=== PATIENT | female | born 1950 | race Caucasian/White ===

== ENCOUNTER 2016-07-15 15:49 | Outpatient (CLI) | payer BC, MEDICARE | END 2016-07-15 15:50 | disposition home or self-care (01) | DX: Z12.31 Encounter for screening mammogram for malignant neoplasm of breast (principal) ==

== ENCOUNTER 2017-07-29 18:46 | Outpatient (CLI) | payer MEDICARE ==
--- NOTE | 2017-07-30 13:14 | Ultrasound Report ---
RIGHT UPPER QUADRANT ULTRASOUND: 07/29/2017 CLINICAL INDICATION: Right upper quadrant pain. TECHNIQUE: Real-time scanning was performed with indirect sales representative static images obtained. FINDINGS: The liver measures 14.2 cm. Hepatic echogenicity is normal. No intrahepatic biliary dilatation or focal parenchymal lesion is present. The common bile duct measures 3 mm. The gallbladder is normal. The right kidney measures 9.8 cm, and demonstrates no hydronephrosis. No free fluid is present. IMPRESSION: NORMAL RIGHT UPPER QUADRANT ULTRASOUND. TD: 07/30/2017 13:13
== END 2017-07-29 18:47 | disposition home or self-care (01) ==
LOC: DI 18:46
PROVIDERS: ATTEND Nurse Practitioner Family
DX: R10.11 Right upper quadrant pain (principal)
CPT/HCPCS: 76705

== ENCOUNTER 2018-06-28 09:30 | Day surgery (SDC) | payer MEDICARE ==
[2018-06-28] MEDS ORDERED: LACTATED RINGERS 1,000 ML IV ONE (10:04)
[2018-06-28 15:56] VITALS: BP 111/76
[2018-06-28] MEDS ORDERED: BARIUM SULFATE 1,900 ML BOTTLE RC ONE (16:36)
--- NOTE | 2018-06-28 19:10 | XRAY Report ---
Reason: INCOMPLETE COLONOSCOPY Procedure Date: 06/28/2018 Accession Number: [id number] / [id number] Procedure: FL - Barium Enema w/Air CPT Code: FULL RESULT: EXAM: Barium Enema w/Air DATE: 06/28/2018 3:53 PM CLINICAL HISTORY: INCOMPLETE COLONOSCOPY COMPARISON: None TECHNIQUE: Routine double contrast barium enema. Fluoroscopic exposure time: 6 minutes. Number of fluoroscopic images: 30. FINDINGS: Morphology: Normal distention and anatomy. Colon adequately imaged from the rectum to the cecum. Sigmoid colon is redundant. Mucosa: No masses, annular constricting lesions, or strictures. No filling defects evident. An occasional tiny diverticulum is present. Terminal Ileum: No reflux into the terminal ileum. Other: The appendix is identified. IMPRESSION: Normal double contrast barium enema. RADIA
== END 2018-06-28 09:31 | disposition home or self-care (01) ==
LOC: SDS 09:30
PROVIDERS: ATTEND Surgery
PROC: 0DJD8ZZ Inspection of Lower Intestinal Tract, Via Natural or Artificial Opening Endoscopic (ICD-10-PCS; principal; 2018-06-28 10:30)
DX: Z12.11 Encounter for screening for malignant neoplasm of colon (principal); Z53.8 Procedure and treatment not carried out for other reasons; Z87.891 Personal history of nicotine dependence; Z72.89 Other problems related to lifestyle
CPT/HCPCS: 74280; A9270; G0121; J7120

== ENCOUNTER 2019-04-13 11:18 | Outpatient (CLI) | payer MEDICARE ==
--- NOTE | 2019-04-14 13:38 | Mammography Report ---
Reason: SCREENING MAMMO Procedure Date: 04/13/2019 Accession Number: [id number] / [id number] Procedure: MGS - Screening Mammo Dig Bilat CPT Code: Final Report FULL RESULT: EXAM: Screening Mammo Dig Bilat DATE: 04/13/2019 11:39 AM CLINICAL HISTORY: Routine screening TECHNIQUE: (B) - Bilateral CC and MLO views were obtained. COMPARISON: 07/15/2016, 01/18/2014, 01/03/2013, 10/15/2011, 02/06 10 PARENCHYMAL PATTERN: (VD) - The breasts demonstrate extremely dense parenchyma bilaterally, limiting the sensitivity of mammography. FINDINGS: No significant interval change. There are no suspicious masses, calcifications, or areas of distortion. IMPRESSION: Negative examination. BI-RADS category 1. RECOMMENDATION: (ANNUAL) - Recommend routine annual screening mammography. BI-RADS CATEGORY: (1) - Negative. STANDARD QUALIFYING STATEMENTS: 1. This examination was not reviewed with the aid of Computer-Aided Detection (CAD). 2. A negative or benign imaging report should not preclude biopsy if clinically suspicious findings are present. 3. Dense breasts may obscure an underlying neoplasm. 4. This examination was reviewed without the aid of 3D breast imaging (tomosynthesis).
== END 2019-04-13 11:19 | disposition home or self-care (01) ==
LOC: DI.S 11:18
DX: Z12.31 Encounter for screening mammogram for malignant neoplasm of breast (principal)
CPT/HCPCS: 77067

== ENCOUNTER 2020-03-29 09:19 | Outpatient (CLI) | payer MEDICARE ==
--- NOTE | 2020-03-29 12:19 | Ultrasound Report ---
PROCEDURE: Abdomen Complete INDICATIONS: UMBILICAL MASS, SPLENOMEGALY TECHNIQUE: Real-time scanning was performed of the abdominal and retroperitoneal organs, with image documentatio n. COMPARISON: 06/28/2013 FINDINGS: Liver: Liver is normal in size and homogeneous in echotexture. Gallbladder: The gallbladder is normal without stones, sludge, wall thickening, or pericholecystic fl uid. Biliary ducts: Intrahepatic bile ducts are non-dilated. Extrahepatic bile duct caliber measures 3 m m. Normal is 6-7 mm or less in diameter, or 10 mm or less post-cholecystectomy. Pancreas: Visualized portions of the pancreas are sonographically normal. Spleen: Spleen is normal in size measuring 8.1 cm, and homogeneous in echotexture. Kidneys: Kidneys are mildly diminutive in size and normal in echotexture. Right kidney measures 9.5 cm long; left kidney measures 8.9 cm long. No hydronephrosis or nephrolithiasis. No solid masses. Aorta: Visualized aorta is normal in caliber at less than 3 cm. Iliacs: Proximal common iliac arteries are normal in caliber at less than 2.5 cm. IVC: Intrahepatic inferior vena cava is patent. Miscellaneous: No free abdominal fluid. There is a horizontally oriented, flat avascular umbilical mass measuring 4.0 x 1.0 x 2.3 cm with a narrow neck through the anterior abdominal wall. The echotex ture is isoechoic to adjacent subcutaneous fat. Slight increase in size with Valsalva maneuver. IMPRESSION: 1. Normal size spleen, stable since the remote prior exam. 2. Fat-containing, narrow necked umbilical hernia. Reviewed by: Karis Thompson MD on 03/29/2020 12:17 PM PDT Approved by: Karis Thompson MD on 03/29/2020 12:17 PM PDT Station ID: [id number]
== END 2020-03-29 09:20 | disposition home or self-care (01) ==
LOC: DI 09:19
PROVIDERS: ATTEND Family Medicine
DX: K42.9 Umbilical hernia without obstruction or gangrene (principal); R16.1 Splenomegaly, not elsewhere classified
CPT/HCPCS: 76700

== ENCOUNTER 2020-04-24 14:10 | Outpatient (CLI) | payer MEDICARE ==
--- NOTE | 2020-04-25 13:22 | Mammography Report ---
BILATERAL DIGITAL SCREENING MAMMOGRAM 3D/2D: 04/24/2020 CLINICAL: Routine screening. Comparison is made to exams dated: 04/13/2019 mammogram, 07/15/2016 mammogram, 01/18/2014 mammogram, 12/13 mammogram, 11/04/2011 mammogram, and 02/06/2010 mammogram - [facility]. The t issue of both breasts is heterogeneously dense. This may lower the sensitivity of mammography. No significant masses, calcifications, or other findings are seen in either breast. There has been no significant interval change. IMPRESSION: NEGATIVE There is no mammographic evidence of malignancy. A 1 year screening mammogram is recommended. This exam was interpreted at Station ID: [id number]. NOTE: For mammograms, a report in lay terms will be sent to the patient. Approximately 15% of breast malignancies will not be visualized mammographically. In the management of a palpable breast mass, a negative mammogram must not discourage biopsy of a clinically suspicious lesion. Electronically Signed By: Asia carrington/stewart:04/24/2020 15:08:35 ACR BI-RADS Category 1: Negative 3341F PARENCHYMAL PATTERN: (D) - The breast(s) demonstrate(s) heterogeneously dense fibroglandular bita mock. BI-RADS CATEGORY: (1) - 1 RECOMMENDATION: (ANNUAL) - Recommend routine annual screening mammography. [id number] 1 year screening LATERALITY: (B)
== END 2020-04-24 14:11 | disposition home or self-care (01) ==
LOC: DI 14:10
DX: Z12.31 Encounter for screening mammogram for malignant neoplasm of breast (principal)
CPT/HCPCS: 77063; 77067

== ENCOUNTER 2020-05-13 17:26 | Outpatient (CLI) | payer MEDICARE | END 2020-05-13 17:27 | disposition home or self-care (01) | LOC: COV 17:26 | PROVIDERS: ATTEND Family Medicine | DX: Z20.828 Contact with and (suspected) exposure to other viral communicable diseases (principal) ==

== ENCOUNTER 2021-06-05 08:00 | Outpatient (CLI) | payer MEDICARE ==
[2021-06-05 15:59] LABS: BILIRUBIN,URINE NEGATIVE (NEGATIVE); GLUCOSE, URINE (UA) NEGATIVE (NEGATIVE); KETONES,URINE (UA) NEGATIVE (NEGATIVE); LEUKOCYTE ESTERASE, URINE SMALL (NEGATIVE); NITRITE,URINE NEGATIVE (NEGATIVE); OCCULT BLOOD,URINE MODERATE (NEGATIVE); PROTEIN,URINE NEGATIVE (NEGATIVE); UROBILINOGEN,URINE 0.2 (NORMAL) E.U./dL (NORMAL)
[2021-06-05 16:03] LABS: CLARITY,URINE HAZY (CLEAR)
[2021-06-05 16:23] LABS: BACTERIA,URINE Few /HPF (None Seen); SQUAMOUS EPITHELIAL CELL,UR RARE Squamous (<= Few); WBC,URINE >25 /HPF (0-5)
[2021-06-05 21:57] LABS: BACTERIAL VAGINOSIS DNA NEGATIVE (NEGATIVE); CANDIDA GLABRATA DNA NEGATIVE (NEGATIVE); CANDIDA GROUP DNA NEGATIVE (NEGATIVE); CANDIDA KRUSEI DNA NEGATIVE (NEGATIVE); TRICHOMONAS VAGINALIS DNA NEGATIVE (NEGATIVE)
== END 2021-06-05 23:59 | disposition home or self-care (01) ==
LOC: LAB 08:00
PROVIDERS: ATTEND Emergency Medicine
DX: N39.0 Urinary tract infection, site not specified (principal)
CPT/HCPCS: 81001; 87077; 87086; 87181; 87661; 87801

== ENCOUNTER 2021-06-10 11:00 | Outpatient (CLI) | payer MEDICARE ==
--- NOTE | 2021-06-11 08:32 | Mammography Report ---
BILATERAL DIGITAL SCREENING MAMMOGRAM 3D/2D WITH EXAGGERATED CC: 06/10/2021 CLINICAL: Routine screening. Family history of breast cancer. Comparison is made to exams dated: 04/24/2020 mammogram, 04/13/2019 mammogram, and 07/15/2016 mammogra m - [facility]. The tissue of both breasts is heterogeneously dense. This may lowe r the sensitivity of mammography. No significant masses, calcifications, or other findings are seen in either breast. There has been no significant interval change. IMPRESSION: NEGATIVE There is no mammographic evidence of malignancy. A 1 year screening mammogram is recommended. This exam was interpreted at Station ID: [id number]. NOTE: For mammograms, a report in lay terms will be sent to the patient. Approximately 15% of breast malignancies will not be visualized mammographically. In the management of a palpable breast mass, a negative mammogram must not discourage biopsy of a clinically suspicious lesion. Electronically Signed By: Mick huber/stewart:06/10/2021 12:44:04 ACR BI-RADS Category 1: Negative 3341F PARENCHYMAL PATTERN: (D) - The breast(s) demonstrate(s) heterogeneously dense fibroglandular bita mock. BI-RADS CATEGORY: (1) - 1 RECOMMENDATION: (ANNUAL) - Recommend routine annual screening mammography. [id number] 1 year screening LATERALITY: (B)
== END 2021-06-10 11:01 | disposition home or self-care (01) ==
LOC: DI.S 11:00
DX: Z12.31 Encounter for screening mammogram for malignant neoplasm of breast (principal); Z80.3 Family history of malignant neoplasm of breast

== ENCOUNTER 2022-07-20 11:30 | Outpatient (CLI) | payer MEDICARE ==
--- NOTE | 2022-07-21 09:44 | Mammography Report ---
BILATERAL DIGITAL SCREENING MAMMOGRAM 3D/2D WITH EXAGGERATED CC: 07/20/2022 CLINICAL: Routine screening. Family history of breast cancer. Comparison is made to exams dated: 06/10/2021 mammogram, 04/24/2020 mammogram, 04/13/2019 mammogram, and 07/15/2016 mammogram - [facility]. Both breasts are extremely dense, which lowers the sensitivity of mammography (category d />75% gland ular tissue). No significant masses, calcifications, or other findings are seen in either breast. There has been no significant interval change. IMPRESSION: NEGATIVE There is no mammographic evidence of malignancy. A 1 year screening mammogram is recommended. Based on the Tyrer Cuzick model (a risk assessment model) the patients lifetime risk is 11.7% and he r 10 year risk is 8.1%. According to the ACR, ACS, and NCCN guidelines, an annual breast MRI exam vanna ng with mammogram is recommended if the patients lifetime risk is 20% or greater. This exam was interpreted at Station ID: [id number]. NOTE: For mammograms, a report in lay terms will be sent to the patient. Approximately 15% of breast malignancies will not be visualized mammographically. In the management of a palpable breast mass, a negative mammogram must not discourage biopsy of a clinically suspicious lesion. Electronically Signed By: Tanmay Stokes M.D., jr/stewart:07/20/2022 12:23:46 ACR BI-RADS Category 1: Negative 3341F PARENCHYMAL PATTERN: (VD) - The breast(s) demonstrate(s) extremely dense parenchyma, limiting the sen sitivity of mammography. BI-RADS CATEGORY: (1) - 1 RECOMMENDATION: (ANNUAL) - Recommend routine annual screening mammography. [id number] 1 year screening LATERALITY: (B)
== END 2022-07-20 23:59 | disposition home or self-care (01) ==
LOC: DI 11:30
PROVIDERS: ATTEND Registered Nurse
DX: Z12.31 Encounter for screening mammogram for malignant neoplasm of breast (principal); Z80.3 Family history of malignant neoplasm of breast

== ENCOUNTER 2022-10-06 12:42 | Outpatient (CLI) | payer MEDICARE ==
--- NOTE | 2022-10-06 18:42 | MRI Report ---
PROCEDURE: KNEE WO - RT INDICATIONS: RIGHT KNEE PAIN TECHNIQUE: Noncontrast sagittal PD fast spin echo and T2 fast spin echo with fat saturation, sagittal 3-D gradie nt sequence with fat saturation; coronal T1 spin echo and PD fast spin echo with fat saturation, and axial PD fast spin echo with fat saturation through the knee. COMPARISON: Good FINDINGS: Image quality: Excellent Menisci Medial: Horizontal tear of the medial meniscus, involving the free edge of the body, and extending in to the posterior horn. Lateral: Possible tiny horizontal tear at the peripheral body. Cruciate ligaments: Intact Medial structures MCL: Intact Pes anserine tendons: Mild bursitis Semimembranosus: Intact Lateral structures LCL: Intact Biceps femoris: Intact IT band: Intact Popliteus tendon: Intact Anterior structures Extensor mechanism: Intact. There is also minimal prepatellar edema. Fat pads: No pathologic edema Medial retinaculum: Intact. Trochlea: Unremarkable morphology. Bone and joint Bones: No fracture, dislocation. Posterior medial femoral condyle intraosseous ganglions are seen at the capsular insertion (12/06), with mild surrounding soft tissue swelling.. Cartilage: Mild to moderate heterogeneity in multiple compartments. A focus of full-thickness fissuri ng with edema is seen in the anterior central femoral condyle. Joint space: Physiologic fluid. No measureable loose body. Colindres's cyst: Tiny Colindres's cyst Soft tissues: No significant vascular or other soft tissue pathology. Small periarticular ganglions. IMPRESSION: Intact cruciate ligaments. Horizontal tear of the medial meniscus involving the free edge. Possible t iny, probably degenerative, horizontal tear of the lateral meniscal body. Cartilage heterogeneity with a focus of full-thickness fissuring and underlying marrow edema in the c entral anterior medial femoral condyle Mild edema surrounds the posteromedial corner structures, near the joint capsule insertion at the pos terior medial femoral condyle, and adjacent pes anserine bursitis. Small Colindres's cyst. Reviewed by: Robert Stratton MD on 10/06/2022 6:41 PM PDT Approved by: Robert Stratton MD on 10/06/2022 6:41 PM PDT Station ID: [id number]
== END 2022-10-06 12:43 | disposition home or self-care (01) ==
LOC: DI 12:42
PROVIDERS: ATTEND Internal Medicine
DX: S83.241A Other tear of medial meniscus, current injury, right knee, initial encounter (principal); R93.6 Abnormal findings on diagnostic imaging of limbs; M71.21 Synovial cyst of popliteal space [Baker], right knee

== ENCOUNTER 2023-09-17 08:00 | Outpatient (CLI) | payer MEDICARE ==
[2023-09-17 17:24] LABS: BILIRUBIN,URINE NEGATIVE (NEGATIVE); GLUCOSE, URINE (UA) NEGATIVE (NEGATIVE); KETONES,URINE (UA) NEGATIVE (NEGATIVE); LEUKOCYTE ESTERASE, URINE NEGATIVE (NEGATIVE); NITRITE,URINE NEGATIVE (NEGATIVE); OCCULT BLOOD,URINE MODERATE (NEGATIVE); PROTEIN,URINE NEGATIVE (NEGATIVE); UROBILINOGEN,URINE 0.2 (NORMAL) E.U./dL (NORMAL)
[2023-09-17 17:36] LABS: BACTERIA,URINE Rare /HPF (None Seen); CLARITY,URINE CLEAR (CLEAR); SQUAMOUS EPITHELIAL CELL,UR NONE SEEN (<= Few); WBC,URINE 0-3 /HPF (0-5)
== END 2023-09-17 23:59 | disposition home or self-care (01) ==
LOC: LAB.WC 08:00
PROVIDERS: ATTEND Obstetrics & Gynecology
DX: R32 Unspecified urinary incontinence (principal); R31.9 Hematuria, unspecified
CPT/HCPCS: 81001; 81002; 87086

== ENCOUNTER 2023-09-21 13:11 | Outpatient (CLI) | payer MEDICARE ==
--- NOTE | 2023-09-22 09:08 | Mammography Report ---
BILATERAL DIGITAL SCREENING MAMMOGRAM 3D/2D WITH EXAGGERATED CC: 09/21/2023 CLINICAL: Routine screening. Family history of breast cancer. Comparison is made to exams dated: 07/20/2022 mammogram, 06/10/2021 mammogram, and 04/24/2020 mammogra m - [facility]. Both breasts are extremely dense, which lowers the sensitivity of mammography (category d />75% gland ular tissue). No significant masses, calcifications, or other findings are seen in either breast. There has been no significant interval change. IMPRESSION: NEGATIVE There is no mammographic evidence of malignancy. A 1 year screening mammogram is recommended. Based on the Tyrer Cuzick model (a risk assessment model) the patient's lifetime risk is 11.1% and he r 10 year risk is 8.3%. According to the ACR, ACS, and NCCN guidelines, an annual breast MRI exam vanna ng with mammogram is recommended if the patient's lifetime risk is 20% or greater. This exam was interpreted at Station ID: [id number]. NOTE: For mammograms, a report in lay terms will be sent to the patient. Approximately 15% of breast malignancies will not be visualized mammographically. In the management of a palpable breast mass, a negative mammogram must not discourage biopsy of a clinically suspicious lesion. Electronically Signed By: Karis miller/stewart:09/21/2023 17:58:40 ACR BI-RADS Category 1: Negative 3341F PARENCHYMAL PATTERN: (VD) - The breast(s) demonstrate(s) extremely dense parenchyma, limiting the sen sitivity of mammography. BI-RADS CATEGORY: (1) - 1 RECOMMENDATION: (ANNUAL) - Recommend routine annual screening mammography. [id number] 1 year screening LATERALITY: (B)
== END 2023-09-21 13:12 | disposition home or self-care (01) ==
LOC: DI.S 13:11
PROVIDERS: ATTEND Registered Nurse
DX: Z12.31 Encounter for screening mammogram for malignant neoplasm of breast (principal); R92.30 Dense breasts, unspecified; Z80.3 Family history of malignant neoplasm of breast